=== PATIENT | male | born 1990 | race Caucasian/White ===

== ENCOUNTER 2016-09-08 04:44 | Emergency (ER) | payer MEDICAID ==
[2016-09-08] MEDS ORDERED: AMOXICILLIN TRIHYDRATE 250 MG CAPSULE ONE (05:28)
== END 2016-09-08 05:33 | disposition home or self-care (01) ==
LOC: ED 04:44
DX: H66.91 Otitis media, unspecified, right ear (principal)
CPT/HCPCS: 99283 ×2; A9270